=== PATIENT | female | born 1950 | race Caucasian/White ===

== ENCOUNTER → 2019-07-09 | Day surgery (SDC) | payer MEDICARE, OTHER ==
[~2019-07-09] MED LIST: Propofol 200 MG/20 ML SDV IV ONE
[2019-07-09] MEDS: Lactated Ringers 1,000 ML IV SCH (10:24)
--- NOTE | 2019-07-12 08:28 | OR ---
DATE OF OPERATION: 07/09/2019 PREOPERATIVE DIAGNOSIS: POSITIVE COLOGUARD. POSTOPERATIVE DIAGNOSIS: POSITIVE COLOGUARD. SURGEON: Leon Nice MD PROCEDURE: FULL-LENGTH COLONOSCOPY WITH SNARE POLYPECTOMY X1 ANESTHESIA: MAC. COMPLICATIONS: None. SPECIMEN: 1. 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 2. Biopsy x1, ileocecal valve. FINDINGS: 1. Full-length colonoscopy. 2. Minimal inflammation, back side of ileocecal valve. 3. Tubulovillous adenoma, mid transverse colon, slightly larger than 0.5 cm. RECOMMENDATIONS: Followup colonoscopy in 5 years pending path report. INDICATIONS: The patient has an apparent prior history of incomplete colonoscopies. She had a positive Cologuard, and Isi Rodriguez send her for diagnostic scope. DESCRIPTION OF PROCEDURE: The patient was prepped and draped, placed in left lateral decubitus position. A lubricated Olympus colonoscope was inserted and with relative ease advanced to the cecum. The patient is quite tortuous and difficult to get through the sigmoid, but once through that area, scope passed safely and easily into the cecal pouch. We were able to directly visualize the ileocecal valve and appendiceal orifice. The bowel prep was excellent. Upon withdrawal, the cecal pouch itself appeared benign. The valve on the back side was a little inflamed and irritated. I did do a biopsy of that. The rest of the ascending colon was unremarkable. In the mid transverse colon, the patient had a 6 or 7 mm tubulovillous lesion, flatter, right in the mid transverse colon. We removed it with a snare and suctioned into polyp trap number one. The rest of the transverse and descending colons were unremarkable. The sigmoid colon was benign as was the rectosigmoid junction. Rectal vault was unremarkable. Retroflexion of the scope in the rectum showed no anal lesions. I found no other lesions, polyps, masses, colitis, vascular abnormalities, or diverticula. Air was suctioned and the scope was removed without complication. YOMI/CLAUDIA /[id number]
== END ==
LOC: CC.SDS 10:03
PROVIDERS: ATTEND Family Medicine
DX: D12.3 Benign neoplasm of transverse colon (principal); K63.89 Other specified diseases of intestine; I10 Essential (primary) hypertension; E78.5 Hyperlipidemia, unspecified; E03.9 Hypothyroidism, unspecified; J45.909 Unspecified asthma, uncomplicated; M81.0 Age-related osteoporosis without current pathological fracture; M19.90 Unspecified osteoarthritis, unspecified site; Z79.51 Long term (current) use of inhaled steroids; Z79.899 Other long term (current) drug therapy
CPT/HCPCS: 45380; 45385; 88305; J2704; J7120

== ENCOUNTER 2020-11-27 05:56 | Emergency (ER) | payer MEDICARE, OTHER ==
--- NOTE | 2020-11-27 06:45 | EDM.PDOC ---
ED HPI GENERAL MEDICAL PROBLEM - General Chief Complaint: General Stated Complaint: "heart racing & blood pressure up since last night Time Seen by Provider: 11/27/20 06:28 Source of Information: Reports: Patient History Limitations: Reports: No Limitations - History of Present Illness INITIAL COMMENTS - FREE TEXT/NARRATIVE: Slime is a 70 year old female who presents to ER with "not feeling quite right". Had palpitations last night after her nebulizer and blood pressure was "up a bit". States continued to check her blood pressure and pulse through the night and was high at times. Reports pulse was highest at 90 bpm, blood pressure 160/90. Had 2 loose stools. Had one episode of chills. Concerned at one point that could be related to her heart, hasn't slept well. No shortness of breath. No diaphoresis. "was belching a few times" but no nausea or vomiting. No urinary symptoms. Has never had any chest discomfort, just felt like heart was racing at times. Onset: Gradual Duration: Hour(s): Location: Reports: Generalized Associated Symptoms: Reports: Fever/Chills, Malaise. Denies: Confusion, Chest Pain, Cough, Headaches, Loss of Appetite, Nausea/Vomiting, Shortness of Breath, Weakness - Related Data Allergies Allergy/AdvReac Type Severity Reaction Status Date / Time No Known Allergies Allergy Verified 11/27/20 06:19 Home Meds: Home Meds Albuterol/Ipratropium [DuoNeb 3.0-0.5 MG/3 ML] 3 ml NEB BID 06/29/15 [History] Budesonide [Pulmicort] 0.5 mg INH BID 06/29/15 [History] Hydrochlorothiazide 25 mg PO DAILY 06/29/15 [History] Levothyroxine [Synthroid] 88 mcg PO ACBREAKFAST 06/29/15 [History] atorvaSTATin [Lipitor] 10 mg PO BEDTIME 06/29/15 [History] Cholecalciferol (Vitamin D3) [Vitamin D] 2,000 units PO DAILY 01/04/16 [History] Ascorbic Acid [Vitamin C] 500 mg PO ASDIRECTED 07/19/16 [History] Multivitamin [Daily Multiple Vitamin] 1 tab PO DAILY 01/24/17 [History] Acetaminophen [Tylenol Extra Strength] 500 - 1,000 mg PO Q6H PRN 07/08/19 [History] Albuterol [Ventolin HFA] 2 inh INH Q4H PRN 07/08/19 [History] Calcium Carbonate [Calcium] 600 mg PO BID 07/08/19 [History] Denosumab [Prolia] 60 mg IM ASDIRECTED 07/08/19 [History] polyethylene glycoL 3350 [MiraLAX] 17 gm PO DAILY 07/08/19 [History] Fish Oil/[place]-3 Fatty Acids [Fish Oil] 1 each PO DAILY 07/09/19 [History] Past Medical History Cardiovascular History: Reports: High Cholesterol, Hypertension Respiratory History: Reports: Asthma Endocrine/Metabolic History: Reports: Hypothyroidism, Osteoporosis Social & Family History - Tobacco Use Tobacco Use Status *Q: Never Tobacco User ED ROS GENERAL - Review of Systems Review Of Systems: See Below Constitutional: Reports: Malaise, Fatigue. Denies: Fever, Chills, Weakness HEENT: Denies: Ear Pain, Sinus Problem, Throat Pain, Vertigo Respiratory: Denies: Shortness of Breath, Cough Cardiovascular: Reports: Palpitations. Denies: Chest Pain, Edema, Lightheadedness Endocrine: Reports: Fatigue GI/Abdominal: Reports: Diarrhea. Denies: Abdominal Pain, Constipation, Nausea, Vomiting : Reports: No Symptoms Musculoskeletal: Reports: No Symptoms Skin: Reports: No Symptoms Neurological: Denies: Dizziness, Headache, Weakness ED EXAM, GENERAL - Physical Exam Exam: See Below Exam Limited By: No Limitations General Appearance: Alert, WD/WN, No Apparent Distress Ears: Normal External Exam, Normal TMs Nose: Normal Inspection, Normal Mucosa, No Blood Throat/Mouth: Normal Inspection, Normal Oropharynx Head: Normocephalic Neck: Normal Inspection, Supple, Non-Tender Respiratory/Chest: No Respiratory Distress, Lungs Clear, Normal Breath Sounds Cardiovascular: Regular Rate, Rhythm GI/Abdominal: Normal Bowel Sounds, Soft, Non-Tender Extremities: Normal Inspection, No Pedal Edema Neurological: Alert, Oriented Skin Exam: Warm, Dry Course - Vital Signs Last Recorded V/S: Last Vital Signs Temp 98.3 F 11/27/20 06:14 Pulse 76 11/27/20 06:51 Resp 18 11/27/20 06:28 BP 139/88 11/27/20 06:51 Pulse Ox 97 11/27/20 06:28 - Orders/Labs/Meds Orders: Active Orders 24 hr Category Date Time Status Chest 2V [CR] Stat Exams 11/27/20 06:27 Taken UA W/MICROSCOPIC [URIN] Stat Lab 11/27/20 07:11 Ordered Labs: Laboratory Tests 11/27/20 11/27/20 11/27/20 Range/Units 06:04 06:27 06:27 WBC 7.5 (5.0-10.0) 10^3/uL RBC 5.58 H (4.00-5.50) 10^6/uL Hgb 14.9 (12.0-16.0) g/dL Hct 44.2 (37.0-47.0) % MCV 79.2 L (82.0-94.0) fL MCH 26.7 L (27.0-32.0) pg MCHC 33.7 (33.0-38.0) g/dL RDW Coeff of Michael 13.7 (11.0-15.0) % Plt Count 550 H (150-400) 10^3/uL Neut % (Auto) 56.3 (35-85) % Lymph % (Auto) 33.2 (10-55) % [place] % (Auto) 7.8 (0-16) % Eos % (Auto) 2.0 (0-5) % Baso % (Auto) 0.7 (0-3) % Neut # (Auto) 4.23 (1.80-7.00) 10^3/uL Lymph # (Auto) 2.50 (1.00-4.80) 10^3/uL J[place] # (Auto) 0.59 (0.00-0.80) 10^3/uL Eos # (Auto) 0.15 (0.00-0.45) 10^3/uL Baso # (Auto) 0.05 10^3/uL D-Dimer, Quantitative (0.00-0.50) Sodium 141 (136-145) mEq/L Potassium 3.3 L (3.5-5.0) mEq/L Chloride 102 (98-106) mEq/L Carbon Dioxide 26 (21-32) mmol/L BUN 18 (7-18) mg/dL Creatinine 0.7 (0.6-1.0) mg/dL Est Cr Clr Drug Dosing 57.46 mL/min Estimated GFR (MDRD) > 60 (>=60) mL/min Glucose 112 H (75-99) mg/dL Lactic Acid 0.8 (0.4-2.0) mmol/L Calcium 9.2 (8.4-10.1) mg/dL Magnesium 1.9 (1.8-2.4) mg/dL Total Bilirubin 0.4 (0.0-1.0) mg/dL AST 30 (15-37) U/L ALT 38 (12-78) U/L Alkaline Phosphatase 88 (46-116) U/L Lactate Dehydrogenase 206 H (100-190) U/L Creatine Kinase 216 H (21-215) U/L Troponin I < 0.017 (0.00-0.06) ng/mL C-Reactive Protein 0.6 (0.2-0.8) mg/dL Total Protein 8.0 (6.4-8.2) g/dL Albumin 3.6 (3.4-5.0) g/dL TSH, Ultra Sensitive 1.06 (0.36-5.60) uIU/mL SARS CoV-2 RNA Rapid TRAY (NEGATIVE) 11/27/20 11/27/20 Range/Units 06:28 06:50 WBC (5.0-10.0) 10^3/uL RBC (4.00-5.50) 10^6/uL Hgb (12.0-16.0) g/dL Hct (37.0-47.0) % MCV (82.0-94.0) fL MCH (27.0-32.0) pg MCHC (33.0-38.0) g/dL RDW Coeff of Michael (11.0-15.0) % Plt Count (150-400) 10^3/uL Neut % (Auto) (35-85) % Lymph % (Auto) (10-55) % [place] % (Auto) (0-16) % Eos % (Auto) (0-5) % Baso % (Auto) (0-3) % Neut # (Auto) (1.80-7.00) 10^3/uL Lymph # (Auto) (1.00-4.80) 10^3/uL [place] # (Auto) (0.00-0.80) 10^3/uL Eos # (Auto) (0.00-0.45) 10^3/uL Baso # (Auto) 10^3/uL D-Dimer, Quantitative 0.52 H (0.00-0.50) Sodium (136-145) mEq/L Potassium (3.5-5.0) mEq/L Chloride (98-106) mEq/L Carbon Dioxide (21-32) mmol/L BUN (7-18) mg/dL Creatinine (0.6-1.0) mg/dL Est Cr Clr Drug Dosing mL/min Estimated GFR (MDRD) (>=60) mL/min Glucose (75-99) mg/dL Lactic Acid (0.4-2.0) mmol/L Calcium (8.4-10.1) mg/dL Magnesium (1.8-2.4) mg/dL Total Bilirubin (0.0-1.0) mg/dL AST (15-37) U/L ALT (12-78) U/L Alkaline Phosphatase (46-116) U/L Lactate Dehydrogenase (100-190) U/L Creatine Kinase (21-215) U/L Troponin I (0.00-0.06) ng/mL C-Reactive Protein (0.2-0.8) mg/dL Total Protein (6.4-8.2) g/dL Albumin (3.4-5.0) g/dL TSH, Ultra Sensitive (0.36-5.60) uIU/mL SARS CoV-2 RNA Rapid TRAY Negative (NEGATIVE) - Re-Assessments/Exams Free Text/Narrative Re-Assessment/Exam: 11/27/20 07:27 EKG shows NSR. Chest xray is normal. Labs are all essentially stable. Potassium mildly low at 3.3, likely due to HCTZ. Will have patient return to clinic in [place] in am for recheck of blood pressure. Departure - Departure Time of Disposition: 07:32 Disposition: Home, Self-Care 01 Condition: Good Clinical Impression: Palpitations - Discharge Information *PRESCRIPTION DRUG MONITORING PROGRAM REVIEWED*: No *COPY OF PRESCRIPTION DRUG MONITORING REPORT IN PATIENT ELISEO: No Instructions: Palpitations, [id number] Forms: ED Department Discharge Additional Instructions: 1. Rest 2. Take usual meds this am 3. Push fluids 4. Increase oral potassium intake with green leafy vegetables, bananas, etc. 5. Return to [facility] clinic in am at 1030 for recheck of blood pressure. Only need to check blood pressure 2-3 times per day if high. 6. Call with any questions or concerns. Sepsis Event Note (ED) - Evaluation Sepsis Screening Result: No Definite Risk - Focused Exam Vital Signs: Vital Signs Temp Pulse Resp BP Pulse Ox 11/27/20 06:51 76 139/88 11/27/20 06:37 80 141/100 H 11/27/20 06:28 76 18 149/91 H 97 11/27/20 06:14 98.3 F 77 18 155/127 H 96 - My Orders Last 24 Hours: My Active Orders 11/27/20 06:27 Chest 2V [CR] Stat 11/27/20 07:11 UA W/MICROSCOPIC [URIN] Stat - Assessment/Plan Last 24 Hours: My Active Orders 11/27/20 06:27 Chest 2V [CR] Stat 11/27/20 07:11 UA W/MICROSCOPIC [URIN] Stat
[2020-11-27 07:09] LABS: CHLORIDE,CL 102 mEq/L (98-106); SODIUM,NA 141 mEq/L (136-145)
== END 2020-11-27 07:52 | disposition home or self-care (01) ==
LOC: CC.ED 05:56
DX: R00.2 Palpitations (principal); E78.00 Pure hypercholesterolemia, unspecified; I10 Essential (primary) hypertension; J45.909 Unspecified asthma, uncomplicated; E03.9 Hypothyroidism, unspecified; Z79.899 Other long term (current) drug therapy; Z20.822 Contact with and (suspected) exposure to COVID-19
CPT/HCPCS: 36415; 71046; 80053; 81001; 82550; 83605; 83615; 83735; 84443; 84484; 85025; 85379; 86140; 99285; U0002

== ENCOUNTER → 2022-12-27 | Day surgery (SDC) | payer MEDICARE, OTHER ==
[~2022-12-27] MED LIST changes: +Ketamine 200 MG/20 ML MDV ONE; +Lactated Ringers 1,000 ML IV SCH; +Lidocaine 2% 5 ML SDV ONE; -Propofol 200 MG/20 ML SDV IV ONE; +Propofol 200 MG/20 ML SDV ONE; +fentaNYL 50 MCG/ML SDV ONE
== END ==
LOC: CC.SDS 08:41
PROVIDERS: ATTEND Family Medicine
DX: D12.2 Benign neoplasm of ascending colon (principal); D12.3 Benign neoplasm of transverse colon; C18.0 Malignant neoplasm of cecum; K31.89 Other diseases of stomach and duodenum; D50.9 Iron deficiency anemia, unspecified; Z88.1 Allergy status to other antibiotic agents; Z79.899 Other long term (current) drug therapy; Z79.890 Hormone replacement therapy; Z98.890 Other specified postprocedural states
CPT/HCPCS: 00813; 87081; J3010; J3490; J7120